=== PATIENT | male | born 1965 | race Caucasian/White ===

== ENCOUNTER → 2021-03-26 09:43 | Outpatient (CLI) | payer OTHER, SELFPAY ==
[2021-03-26 11:06] LABS: COVID19 -Nasal RAPID Negative (Negative)
== END ==
PROVIDERS: Referring Provider Internal Medicine; Visit Provider Internal Medicine
DX: Z20.822 Contact with and (suspected) exposure to COVID-19 (principal)
CPT/HCPCS: 87635; C9803

== ENCOUNTER → 2021-03-26 09:48 | Outpatient (CLI) | payer OTHER, SELFPAY ==
--- NOTE | 2021-03-31 09:36 | PM.PFT.1 ---
Pulmonary Function Test Referral & Results Date Patient Seen: 03/26/21 Requesting provider: Ray Strong Results: The spirometry demonstrates an FVC of 7.39 L which is 139% of predicted. The FEV1 was measured at 3.45 L which is 84% of predicted. The FEV1/FVC ratio was 47 which is 60% of predicted. Following the administration of bronchodilator there was a 12% improvement in FEV1 and FEV1/FVC ratio. There is also a 20% improvement in FEF 25-75% Lung volumes show an SVC of 6.94 L which is 134% of predicted. The diffusing capacity was measured at 32.69 which is 93% of predicted. The maximum voluntary ventilation was reduced Interpretation: This study demonstrates mild obstructive lung disease based on reduction FEV1 more significantly FEV1/FVC ratio which may suggest more of an emphysema type change. There is evidence of reversibility after bronchodilator based on improvement in numbers above
== END ==
PROVIDERS: Referring Provider Student in an Organized Health Care Education/Training Program; Visit Provider Student in an Organized Health Care Education/Training Program
DX: J45.41 Moderate persistent asthma with (acute) exacerbation (principal); J98.8 Other specified respiratory disorders; Z20.822 Contact with and (suspected) exposure to COVID-19
CPT/HCPCS: 87635; 94060; 94726; 94729; C9803